=== PATIENT | female | born 1930 | race Caucasian/White ===

== ENCOUNTER → 2017-08-17 | Outpatient (CLI) | payer OTHER, MEDICAID | LOC: FIMAGING 07:58 | PROVIDERS: ATTEND Internal Medicine Pulmonary Disease | DX: K22.9 Disease of esophagus, unspecified (principal); R05 Cough ==

== ENCOUNTER 2018-06-06 17:10 | Emergency (ER) | payer OTHER, MEDICAID ==
--- NOTE | 2018-06-06 17:19 | EDPHY ---
H & P Source: Patient, EMS Time Seen by Provider: 06/06/18 17:17 HPI/ROS: HPI CHIEF COMPLAINT: m1 hold, sent by [facility]. HISTORY OF PRESENT ILLNESS: 88-year-old female, resides at [facility] presents to the emergency room on M1 hold placed at her living facility, [facility]. The patient according to staff there has been delusional, not eating and drinking. Refusing to get up and walk. Unable to take care of herself. They report that she has a history of depression, sometimes gets delusional. Apparently this been going on a few days now she has not been eating and drinking. Not caring for self. Refusing to take any medications. Brought here to the emergency room for further evaluation. Past Medical History: Depression Past Surgical History: No recent surgery Social History: Resides at [facility]. Denies drugs alcohol tobacco. Family History: Noncontributory ROS REVIEW OF SYSTEMS: 10 Systems were reviewed and negative with the exception of the elements mentioned in the history of present illness. Exam Constitutional elderly, frail triage nursing summary reviewed, vital signs reviewed, awake/alert. Eyes normal conjunctivae and sclera, EOMI, PERRLA. HENT normal inspection, atraumatic, moist mucus membranes, no epistaxis, neck supple/ no meningismus, no raccoon eyes. Respiratory clear to auscultation bilaterally, normal breath sounds, no respiratory distress, no wheezing. Cardiovascular rate normal, regular rhythm, no murmur, no edema, distal pulses normal. Gastrointestinal soft, non-tender, no rebound, no guarding, normal bowel sounds, no distension, no pulsatile mass. Genitourinary no CVA tenderness. Musculoskeletal no midline vertebral tenderness, full range of motion, no calf swelling, no tenderness of extremities, no meningismus, good pulses, neurovascularly intact. Skin pink, warm, & dry, no rash, skin atraumatic. Neurologic awake, alert and oriented x 3, AAOx3, moves all 4 extremities equally, motor intact, sensory intact, CN II-XII intact, normal cerebellar, normal vision, normal speech. Psychiatric appears delusional, at times rambling speech. Heme/Lymph/Immune no lymphadenopathy. Differential Diagnosis: Includes but is not limited to in a particular order underlying depression, mood disorder, bipolar disorder, acute delirium, delusional disorder, gravely disable Medical Decision Making: Patient has been placed on M1 hold by a psychologist at [facility]. Plan will be for IV establishment blood draw, check electrolytes , and patient need mental health evaluation. Re-evaluation: 2120: Patient remains on M1 hold. Patient has urinalysis that shows UTI. Urine cultures been sent and scheduled Keflex as been ordered. Patient on M1 hold for grave disability, not taking care of herself. Mental health seen and evaluated plan for re-evaluation this morning. Signed over at 10:[address] [facility]. [facility] 6:50 a.m.- The patient has been stable throughout my shift. She is awaiting re-evaluation by mental health as she seems quite stable at this point we wonder if she would be able to return to [facility] with M1 hold lifted. The case will be signed out to Dr. Tejada. (Isela Busby) Constitutional: Initial Vital Signs Temperature (C) 36.7 C 06/06/18 17:53 Heart Rate 75 06/06/18 17:53 Respiratory Rate 18 06/06/18 17:53 Blood Pressure 141/78 H 06/06/18 17:53 O2 Sat (%) 98 06/06/18 17:53 O2 Delivery Mode Room Air Allergies/Adverse Reactions: erythromycin base [Erythromycin Base] Allergy (Mild, Verified 08/20/10 19:03) Rash iodine [Iodine] Allergy (Mild, Verified 08/20/10 19:03) Rash Penicillins Allergy (Mild, Verified 08/20/10 19:03) Rash tetracycline [Tetracycline] Allergy (Mild, Verified 08/20/10 19:03) Rash Horse/Equine Containing Products [Horse/Equine Product Derivatives] Allergy ( Unknown, Verified 08/20/10 19:04) Rash latex [Latex] Allergy (Unknown, Verified 08/20/10 19:04) CONTACT DERMATITIS Shellfish *RETIRED-05/22/12 [Shellfish] Allergy (Unknown, Verified 08/20/10 19: 05) VOMIT Home Medications: Medication Instructions Recorded Cephalexin [Keflex] 500 mg PO Q6H #28 cap 06/06/18 Singulair 06/07/18 Medical Decision Making ED Course/Re-evaluation: This patient was turned over to me at change of shift. After further discussion with the psychiatric team and after their evaluation this patient does not meet criteria for psychiatric placement. This patient will be best served by returning back to her care facility. We are making those arrangements send her back to [facility] (Lul Tejada) - Data Points Laboratory Results: Laboratory Results 06/06/18 17:20 06/06/18 17:20 06/06/18 17:20 Vitamin B12 949 pg/mL H pg/mL (239-931) TSH 0.815 uIU/mL uIU/mL (0.465-4.680) Medications Given: Cephalexin HCl (Keflex) 500 mg PO Q6H JOSE Stop: 07/07/18 01:59 Last Admin: 06/07/18 01:23 Dose: 500 mg Discontinued Medications Cephalexin HCl (Keflex) 500 mg PO EDNOW ONE PRN Reason: Protocol Stop: 06/06/18 19:59 Last Admin: 06/06/18 20:00 Dose: 500 mg Departure - Departure Disposition: Home, Routine, Self-Care Clinical Impression: UTI (urinary tract infection) Qualifiers: Urinary tract infection type: acute cystitis Hematuria presence: with hematuria Qualified Code(s): N30.01 - Acute cystitis with hematuria Condition: Good Instructions: Urinary Tract Infection in Women (ED) Referrals: [facility] [Other] - As per Instructions Prescriptions: Cephalexin [Keflex] 500 mg PO Q6H #28 cap
[2018-06-06 17:29] LABS: PLATELET COUNT 177 10^3/uL (150-400)
[2018-06-06] MEDS ORDERED: CEPHALEXIN 500 MG CAP PO ONE (19:58)
[2018-06-07] MEDS: CEPHALEXIN 500 MG CAP PO SCH ×2 (01:23→08:09)
[2018-06-07 09:37] VITALS: BP 135/63
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
--- NOTE | 2018-06-09 12:46 | ASMTTCLDSP ---
TLC Discharge Disposition Disposition: Answers: Discharge Disposition Notes: Notes: In consultation with [facility] ED physician, Lul Tejada MD, and on-call psychiatrist, Martha Mills MD, both concurred that the patient does not appear to meet 27-65 criteria requiring psychiatric hospitalization as patient does not appear to be an imminent risk of harm to self and gravely disabled due to a mental illness condition. Discharge Concerns/Recommendations: Notes: The patient was transferred back to [place]. Was patient given the Answers: Not applicable Inpatient Behavioral Health Prohibited Belongings List while in the ED? Date Signed: 06/09/2018 12:37 PM Electronically Signed By:Sherron Baugh
== END 2018-06-07 09:35 | disposition home or self-care (01) ==
LOC: EDUNIT#
DX: N39.0 Urinary tract infection, site not specified (principal)
CPT/HCPCS: 80305; 82607-90; G0480